=== PATIENT | male | born 1960 | race Two or more races ===

== ENCOUNTER 2025-11-02 15:47 | Emergency (ER) | payer OTHER ==
[~2025-11-02] VITALS: Ht 180.3 cm; Wt 79.4 kg
[2025-11-02 20:52] LABS: BASO % 0.1 % (0.1-1.2); EOS # 0.00 (0.04-0.54); EOS % 0.0 % (0.7-7.0); LYMPH # 1.27 (1.18-3.74); LYMPH % 17.7 % (19.3-53.1); MEAN PLATELET VOLUME 10.20 fl (9.4-12.4); MONO # 0.48 (0.24-0.82); MONO % 6.7 % (4.7-12.5); NEUT # 5.42 (1.56-6.13); NEUT % 75.4 % (34.0-71.1); RED CELL DISTRIBUTION WIDTH 12.0 % (11.6-14.4)
[2025-11-02 22:00] LABS: COVID-19 AG NEGATIVE (NEGATIVE)
[2025-11-02 22:01] LABS: ALT/SGPT 34.0 U/L (12-78); AST/SGOT 18.0 U/L (15-37); BILIRUBIN TOTAL 1.22 mg/dL (0.3-1.2); BUN CREA RATIO 18.0 (7.0-25.0); CREATININE SERUM 0.76 mg/dL (0.70-1.30); GFR 103.26; GLOBULINA 3.5 G/DL (2.4-3.5); GLUCOSE FASTING 93.0 mg/dL (65-100); OSMOLALITY SERUM 283.0 MOSM/KG (275-295)
[2025-11-03 01:16] LABS: URINE APPEARANCE Clear; URINE BILIRRUBIN Negative (NEGATIVE); URINE BLOOD Negative; URINE COLOR Yellow; URINE GLUCOSE Negative (NEGATIVE); URINE LEUKOCYTE Negative; URINE NITRATE Negative; URINE PROTEIN Negative (NEGATIVE); URINE UROBILINOGEN 0.2 E.U./dl
[2025-11-03 01:20] LABS: URINE RBC 8.6 uL (0.0-20.8); URINE WBC 3.5 uL (0.0-23.2)
[2025-11-03 01:34] LABS: URINE BACTERIA 3.4 uL (0.0-1933); URINE CAST 0.00 uL (0.0-1.40); URINE EPITHELIAL CELLS 1.2 uL (0.0-38.8); URINE KETONE 80 (NEGATIVE)
[2025-11-03 01:42] LABS: COCAINE NEGATIVE (NEGATIVE); METHADONE NEGATIVE (NEGATIVE); OPIATES NEGATIVE (NEGATIVE); THC ( Cannabinoids) NEGATIVE (NEGATIVE)
== END 2025-11-03 04:26 | disposition home or self-care (01) ==
LOC: ER 15:47
PROVIDERS: Preventive Medicine Public Health & General Preventive Medicine
DX: R41.3 Other amnesia (principal); R41.0 Disorientation, unspecified; Z20.822 Contact with and (suspected) exposure to COVID-19